=== PATIENT | male | born 1955 | race Caucasian/White ===

== ENCOUNTER 2018-08-20 10:10 | Emergency (ER) | payer MEDICARE, OTHER ==
[~2018-08-20] VITALS: Ht 172.7 cm; Wt 95.2 kg
[~2018-08-20 10:10] MED LIST: ASPI81TA50 PO; ATORVASTATIN CA80 MG PO; CARV6.2541 PO; CLOP75TA PO; CYAN1TAB19 PO; ISOS60TA2 PO; LISI2.5T PO; RANO10002 PO; SPIR25TA5 PO
[2018-08-20] MEDS ORDERED: IV NORMAL SALINE 1,000ML 1,000 ML IV SCH (10:23)
--- NOTE | 2018-08-20 10:29 | PHYS DOC ---
Past History Past Medical History: CAD, High Cholesterol, Heart Disease, Hypertension Past Surgical History: Pacemaker, Other Additional Past Surgical Histo: cardiac catheterization, PTCA Smoking: Quit Greater Than 1 Year Alcohol Use: Occasionally Drug Use: None Adult General Chief Complaint Chief Complaint: NEAR SYCOPE [facility] HPI Patient is a 63-year-old male who presents to the emergency department for evaluation. He states he was driving, when he began getting diaphoretic, lightheaded, and felt like he was almost going to pass out. He states his symptoms lasted a few seconds, although his diaphoresis lasted several minutes. He states he is currently feeling generally fatigued, but otherwise feels well. At no time did he have any chest pain, although he does admit to having some vague discomfort in the back of his neck, something he has had intermittently in the past. He does have an extensive cardiac history, with a history of prior coronary stents in the past, as well as a history of atrial fibrillation, and a pacemaker placement. He states his pacemaker was placed because of poor heart function from several heart attacks. He denies any shortness of breath at this t rafaela or pleuritic pain. He states that with his prior cardiac events and never had any chest pain, but rather had symptoms similar to how he felt today. There are no alleviating or exacerbating factors to his symptoms. Review of Systems Review of Systems Constitutional: Denies fever or chills [] Eyes: Denies change in visual acuity, redness, or eye pain [] HENT: Denies nasal congestion or sore throat [] Respiratory: Denies cough or shortness of breath [] Cardiovascular: No additional information not addressed in [facility] [] GI: Denies abdominal pain, nausea, vomiting, bloody stools or diarrhea [] : Denies dysuria or hematuria [] Musculoskeletal: Denies back pain or joint pain [] Integument: Denies rash or skin lesions [] Neurologic: Denies headache, focal weakness or sensory changes [] Endocrine: Denies polyuria or polydipsia [] All other systems were reviewed and found to be within normal limits, except as documented in this note. Allergies Allergies Allergies Coded Allergies Type Severity Reaction Last Updated Verified No Known Drug Allergies 01/31/16 No Physical Exam Physical Exam PHYSICAL EXAM: CONSTITUTIONAL: Well developed, well nourished HEAD: normocephalic, atraumatic EENT: PERRL, EOMI. Conjunctivae normal color, sclerae non-icteric; moist mucous membranes. NECK: Supple, non-tender; no meningismus. LUNGS: Lungs CTA, breathing even and unlabored. Normal air movement. HEART: Regular rate and rhythm, no murmur CHEST: No deformity; non-tender ABDOMEN: The abdomen is soft, and non-tender, no masses or bruits. EXTREM: Normal ROM; no deformity, no calf tenderness. Normal pulses palpable in all extremities. There is no pedal edema. SKIN: No rash; no diaphoresis NEURO: Alert; normal speech and cognition; CN's grossly intact; strength grossly intact without focal deficit. BACK: No CVA TTP. Current Patient Data Lab Results Laboratory Tests Test 08/20/18 10:41 White Blood Count 6.6 x10^3/uL Red Blood Count 5.05 x10^6/uL Hemoglobin 15.1 g/dL Hematocrit 44.4 % Mean Corpuscular Volume 88 fL Mean Corpuscular Hemoglobin 30 pg Mean Corpuscular Hemoglobin Concent 34 g/dL Red Cell Distribution Width 13.8 % Platelet Count 159 x10^3/uL Neutrophils (%) (Auto) 64 % Lymphocytes (%) (Auto) 23 % Monocytes (%) (Auto) 9 % Eosinophils (%) (Auto) 3 % Basophils (%) (Auto) 1 % Neutrophils # (Auto) 4.2 x10^3uL Lymphocytes # (Auto) 1.5 x10^3/uL Monocytes # (Auto) 0.6 x10^3/uL Eosinophils # (Auto) 0.2 x10^3/uL Basophils # (Auto) 0.1 x10^3/uL Sodium Level 141 mmol/L Potassium Level 3.8 mmol/L Chloride Level 105 mmol/L Carbon Dioxide Level 27 mmol/L Anion Gap 9 Blood Urea Nitrogen 17 mg/dL Creatinine 0.9 mg/dL Estimated GFR (Cockcroft-Gault) 85.2 BUN/Creatinine Ratio 19 Glucose Level 152 mg/dL Calcium Level 9.0 mg/dL Magnesium Level 1.7 mg/dL Total Bilirubin 0.8 mg/dL Aspartate Amino Transf (AST/SGOT) 14 U/L Alanine Aminotransferase (ALT/SGPT) 37 U/L Alkaline Phosphatase 116 U/L Creatine Kinase 69 U/L Creatine Kinase MB (Mass) 0.8 ng/mL Creatine Kinase MB Relative Index 1.2 % Troponin I Quantitative < 0.017 ng/mL NU-Rsc-N-Type Natriuretic Peptide 86 pg/mL Total Protein 7.1 g/dL Albumin 3.8 g/dL Albumin/Globulin Ratio 1.2 Current Medications Medications (Trade) Dose Ordered Sig/Frank Route PRN Reason Start Time Stop Time Status Last Admin Dose Admin Aspirin (Children'S Aspirin) 324 mg 1X ONCE PO 08/20/18 10:30 08/20/18 10:51 DC 08/20/18 10:44 Sodium Chloride 1,000 ml @ 1,000 mls/hr Q1H IV 08/20/18 10:23 08/20/18 11:23 DC 08/20/18 10:43 EKG EKG Probable atrial paced rhythm at a rate of 60 beats for minute, normal axis, normal intervals, left anterior fascicular block, there are no acute ischemic ST/T changes, nonspecific changes are present with significantly delayed and poor anterior R-wave progression. The EKG is not significantly changed compared to patient's prior EKG from 2016. Radiology/Procedures Radiology/Procedures []PROCEDURE: PORTABLE CHEST 1V AP portable chest radiograph 08/20/2018 Clinical History: Near syncope. An AP erect portable digital radiograph of the chest was obtained. Comparison study is dated 01/31/2016. A pacemaker is unchanged in position. The cardiac silhouette is mildly enlarged. The thoracic aorta is mildly tortuous. Calcified left hilar and mediastinal lymph nodes are again seen. No acute pulmonary infiltrate is noted. No pneumothorax or pleural effusion is seen. Degenerative changes are seen involving the thoracic spine. Impression: No acute abnormality is seen. Course & Med Decision Making Course & Med Decision Making Pertinent Labs and Imaging studies reviewed. (See chart for details) []Patient's pacemaker has been interrogated and it does not appear that he had any arrhythmic events today. 11:30 AM: The patient's condition remained stable and he is asymptomatic at this time.I had an extensive discussion with the patient about the limitations of ER cardiac evaluation in definitively ruling out acute coronary syndrome. We discussed limitation of the ER evaluation and a singe ED troponin in r/o AMI, and the risks involved in missed diagnosis of acute coronary syndrome including or permanent debility. I recommended overnight observation for further formal cardiac evaluation to rule out acute coronary syndrome. After expressing understanding of the limitations of ER cardiac evaluation, as well as the risks of missed diagnosis, the patient declined further cardiac evaluation at this time. The patient was mentally competent, and given opportunity to ask questions about the diagnosis and recommended plan of care. I stressed the importance of outpatient follow-up, and returning to the emergency department for new or worsening symptoms, or if the patient is agreeable to undergo further cardiac evaluation. 11:50 AM: Patient changes mind and would like to be observed in the hospital overnight per recommendations, but would rather be transferred to where his cardiac care is based. I will call the transfer center to facilitate transfer. 12:10 PM: The patient's condition remained stable he has been accepted by Dr. Joiner at . Will xfer via EMS. Dragon Disclaimer Dragon Disclaimer This electronic medical record was generated, in whole or in part, using a voice recognition dictation system. Departure Departure: Impression: Primary Impression: Near syncope Additional Impression: CAD (coronary artery disease) Disposition: 02 XFER SHT-TRM HOSP Condition: STABLE Referrals: TASHA KANG (PCP) Patient Instructions: Chest Pain (Nonspecific), Syncope Problem Qualifiers PHILIP BORRERO MD Aug 20, 2018 10:29
[2018-08-20] MEDS ORDERED: ASPIRIN 81 MG TAB.CHEW PO ONE (10:30)
[2018-08-20 10:55] LABS: BASO # 0.1 x10^3/uL (0.0-0.2); BASO % 1 % (0-3); EOS # 0.2 x10^3/uL (0.0-0.7); EOS % 3 % (0-3); HEMATOCRIT 44.4 % (39.0-53.0); HEMOGLOBIN 15.1 g/dL (13.0-17.5); LYMPH # 1.5 x10^3/uL (1.0-4.8); LYMPH % 23 % (24-48); MEAN CORPUSCULAR HEMOGLOBIN 30 pg (25-35); MEAN CORPUSCULAR HGB CONC 34 g/dL (31-37); MEAN CORPUSCULAR VOLUME 88 fL (79-100); MONO # 0.6 x10^3/uL (0.0-1.1); MONO % 9 % (0-9); NEUT # 4.2 x10^3uL (1.8-7.7); NEUT % 64 % (31-73); PLATELET COUNT 159 x10^3/uL (140-400); RED BLOOD COUNT 5.05 x10^6/uL (4.30-5.70); RED CELL DISTRIBUTION WIDTH 13.8 % (11.5-14.5); WHITE BLOOD COUNT 6.6 x10^3/uL (4.0-11.0)
--- NOTE | 2018-08-20 11:09 | RAD ---
AP portable chest radiograph 08/20/2018 Clinical History: Near syncope. An AP erect portable digital radiograph of the chest was obtained. Comparison study is dated 01/31/2016. A pacemaker is unchanged in position. The cardiac silhouette is mildly enlarged. The thoracic aorta is mildly tortuous. Calcified left hilar and mediastinal lymph nodes are again seen. No acute pulmonary infiltrate is noted. No pneumothorax or pleural effusion is seen. Degenerative changes are seen involving the thoracic spine. Impression: No acute abnormality is seen. Electronically signed by: Ken Roa MD (08/20/2018 11:06 AM) [id number]
[2018-08-20 11:15] VITALS: BP 106/64
[2018-08-20 11:18] LABS: ALBUMIN 3.8 g/dL (3.4-5.0); ALBUMIN/GLOBULIN RATIO 1.2 (1.0-1.7); CREATININE 0.9 mg/dL (0.7-1.3); GFR 85.2; MAGNESIUM 1.7 mg/dL (1.8-2.4); POTASSIUM 3.8 mmol/L (3.5-5.1); TOTAL BILIRUBIN 0.8 mg/dL (0.2-1.0); TOTAL PROTEIN 7.1 g/dL (6.4-8.2)
== END 2018-08-20 14:20 | disposition short-term general hospital (02) ==
LOC: ER 10:10
DX: R55 Syncope and collapse (principal); I25.10 Atherosclerotic heart disease of native coronary artery without angina pectoris; I11.9 Hypertensive heart disease without heart failure; E78.00 Pure hypercholesterolemia, unspecified; Z95.0 Presence of cardiac pacemaker; Z98.61 Coronary angioplasty status; Z87.891 Personal history of nicotine dependence
CPT/HCPCS: 36415; 71045; 80053; 82553; 83735; 83880; 84484; 85025; 96360; 96361; 99285-25; J7030

== ENCOUNTER → 2020-11-21 | Outpatient (CLI) | payer MEDICARE, OTHER ==
[~2020-11-21] MED LIST changes: -ISOS60TA2 PO; +ISOS60TA55 PO; -LISI2.5T PO; +LISI2.5T12 PO
[2020-11-21 09:29] LABS: CALCIUM 9.7 mg/dL (8.5-10.1); CREATININE 1.2 mg/dL (0.7-1.3); GFR 60.8; POTASSIUM 5.8 mmol/L (3.5-5.1)
== END ==
LOC: LAB 08:33
PROVIDERS: ATTEND Nurse Practitioner Family
DX: I48.0 Paroxysmal atrial fibrillation (principal)
CPT/HCPCS: 36415; 80048; 85610

== ENCOUNTER 2020-11-24 23:50 | Emergency (ER) | payer MEDICARE, OTHER ==
[~2020-11-24] VITALS: Ht 172.7 cm; Wt 83.1 kg
[~2020-11-24 23:50] MED LIST changes: -APIX5TAB3 PO; -ASPI-630 PO; -LOSA25TA PO; -MAGN500C10 PO; -METF-658 PO; -NITR0.4T22 SL; -POLY17PO5 PO; -SERT25TA PO; -VIT1TAB.7 PO
--- NOTE | 2020-11-24 23:56 | PHYS DOC ---
Past History Past Medical History: A-Fib, Angina, CHF, Hypertension, Other Past Surgical History: Pacemaker Additional Past Surgical Histo: cardiac catheterization, PTCA Smoking: Quit Greater Than 1 Year Alcohol Use: None Drug Use: None General Adult HPI: HPI: ".. I ve been having a little headache tonight.. lissy frontal.. my scalp is tender... Patient is a 65 year old male who presents with headache the last two hours. Pt states he also had some Rt arm numbnesss for a few seconds. 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 Pt. recently chaned from Eliquis to Coumadin for tx of his Afib. Pt. follows at Dr. Danielle at [place] and Dr. Townsend at cardiology. Pt. in a previous history of stroke. Patient does have a past history of A. fib, hypertension, diabetes, depression, elevated lipids, past tobacco use stop smoking for more than a year,. Patient has significant cardiac history with MIs and with coronary artery PTCAs and stents. Patient has had a pacemaker placement. Patient has had episodes of near syncope in the past. Patient has completed COVID vaccination x2 with Moderna. Patient currently being evaluated for heart transplant at . Review of Systems: Review of Systems: Constitutional: Denies fever or chills Eyes: Denies change in visual acuity HENT: Denies nasal congestion or sore throat Respiratory: Denies cough or shortness of breath Cardiovascular: Denies chest pain or edema GI: Denies abdominal pain, nausea, vomiting, bloody stools or diarrhea : Denies dysuria Musculoskeletal: Denies back pain or joint pain Integument: Denies rash Neurologic: Complains of headache,. Denies current focal weakness or sensory changes. Did have a short few second episode of right arm numbness.. Endocrine: Denies polyuria or polydipsia Lymphatic: Denies swollen glands Psychiatric: History of depression or anxiety Family History: Family History: Noncontributory to presentation Current Medications: Current Meds: See nursing for home meds Allergies: Allergies: Allergies Coded Allergies Type Severity Reaction Last Updated Verified Wucsifr-Sqz-Uoe Reductase Inhibitor Allergy Unknown 08/20/18 Yes Physical Exam: PE: Constitutional: no acute distress, non-toxic appearance. [] HENT: Normocephalic, atraumatic, bilateral external ears normal, oropharynx moist, no oral exudates, nose normal. [] Eyes: PERRLA, EOMI, conjunctiva normal, no discharge. Glasses Neck: Normal range of motion, no tenderness, supple, no stridor. [] Cardiovascular: Bradycardia heart rate regular rhythm, no murmur [] Lungs & Thorax: Bilateral breath sounds equal apex on auscultation. Few scattered wheezes. [] pacemaker scar. Few basilar crackles Abdomen: Bowel sounds normal, soft, no tenderness, no masses, no pulsatile masses. Obese. Skin: Warm, dry, no erythema, no rash. [] Back: No tenderness, no CVA tenderness. [] Extremities: No tenderness, no cyanosis, no clubbing, ROM intact, no edema. [] No cording appreciated Neurologic: Alert and oriented X 3, moves extremities on request, does have distal sensory no focal deficits noted. [] DTRs +2 patella brachial. Entrepreneurship Program Director equal. No drift. Bpefy-odfx-nnuwskio. Ambulatory without problem Psychologic: Affect anxious, judgement normal, mood normal. [] EKG: EKG: My interpretation EKG shows a sinus bradycardia at 60 bpm. Leftward axis. Low voltage. No findings of acute STEMI of contralateral changes. [] Time of EKG is 2357 hrs. Radiology/Procedures: Radiology/Procedures: [place] [address] IMAGING REPORT Signed PATIENT: HERBIE GILES AACCOUNT: [id number] : 1955 LOCATION: ER AGE: 65 SEX: M EXAM STATUS: REG ER ORD. PHYSICIAN: SOLIS KONG MD REASON: dyspnea PROCEDURE: PORTABLE CHEST 1V Chest PA view: Reason for examination: Headache and dyspnea. Pacemaker is present over the left hemithorax. The heart size is normal. Med iastinum is unremarkable. Lung aceves are clear. No acute bony abnormalities are seen. Impression: No acute cardiopulmonary disease. CT head without contrast: Helical images were obtained through the brain with no contrast administered. Exposure: One or more of the following individualized dose reduction techniques were utilized for this examination: 1. Automated exposure control 2. Adjustment of the mA and/or kV according to patient size 3. Use of iterative reconstruction technique. Ventricular systems are symmetric and not abnormally dilated. No midline shift is seen. There is no evidence of intracranial hemorrhage, infarct, mass or edema. No abnormalities are seen at the paranasal sinuses. Mastoid air cells are clear. No acute skull abnormality is seen. IMPRESSION: No acute intracranial abnormality evident. Electronically signed by: Alesha Enriquez MD (11/25/2020 1:00 AM) [facility] DICTATED AND SIGNED BY: ALESHA ENRIQUEZ MD DATE: 11/25/2057 CC: SOLIS KONG MD; JESSICA DANIELLE ~MTH0 0 [][place] [address] IMAGING REPORT Signed PATIENT: HERBIE GILES AACCOUNT: [id number] : 1955 LOCATION: ER AGE: 65 SEX: M EXAM STATUS: REG ER ORD. PHYSICIAN: SOLIS KONG MD REASON: headache- on coumadin PROCEDURE: CT HEAD WO CONTRAST Chest PA view: Reason for examination: Headache and dyspnea. Pacemaker is present over the left hemithorax. The heart size is normal. Mediastinum is unremarkable. Lung aceves are clear. No acute bony abnormalities are seen. Impression: No acute cardiopulmonary disease. CT head without contrast: Helical images were obtained through the brain with no contrast administered. Exposure: One or more of the following individualized dose reduction techniques were utilized for this examination: 1. Automated exposure control 2. Adjustment of the mA and/or kV according to patient size 3. Use of iterative reconstruction technique. Ventricular systems are symmetric and not abnormally dilated. No midline shift is seen. There is no evidence of intracranial hemorrhage, infarct, mass or edema. No abnormalities are seen at the paranasal sinuses. Mastoid air cells are clear. No acute skull abnormality is seen. IMPRESSION: No acute intracranial abnormality evident. Electronically signed by: Alesha Enriquez MD (11/25/2020 1:00 AM) [facility] DICTATED AND SIGNED BY: ALESHA ENRIQUEZ MD DATE: 11/25/2057 CC: SOLIS KONG MD; JESSICA DANIELLE ~MTH0 0 Heart Score: C/O Chest Pain: N/A HEART Score for Chest Pain: HEART Score for Chest Pain Response (Comments) Value History Moderately Suspicious 1 ECG Nonspecific Repolarizatio 1 Age >45 - < 65 1 Risk Factors 1 or 2 Risk Factors 1 Troponin < Normal Limit 0 Total 4 Risk Factors: Risk Factors: DM, Current or recent (<one month) smoker, HTN, HLP, family history of CAD, obesity. Risk Scores: Score 0 - 3: 2.5% MACE over next 6 weeks - Discharge Home Score 4 - 6: 20.3% MACE over next 6 weeks - Admit for Clinical Observation Score 7 - 10: 72.7% MACE over next 6 weeks - Early Invasive Strategies Course & Med Decision Making: Course & Med Decision Making Pertinent Labs and Imaging studies reviewed. (See chart for details) Patient declines admission at this time. Patient follow-up with primary care. Patient follow-up at cardiology. Patient will follow up with transplant c enter. Impression: 1. Headache 2. Bradycardia 60 3. INR 3.3 4. Elevated D-dimer as 2.34 [] Dragon Disclaimer: Dragon Disclaimer: This electronic medical record was generated, in whole or in part, using a voice recognition dictation system. Departure Departure: Referrals: JESSICA DANIELLE (PCP) Dragon Disclaimer This chart was dictated in whole or in part using Voice Recognition software in a busy, high-work load, and often noisy Emergency Department environment. It may contain unintended and wholly unrecognized errors or omissions. Dragon Disclaimer This chart was dictated in whole or in part using Voice Recognition software in a busy, high-work load, and often noisy Emergency Department environment. It may contain unintended and wholly unrecognized errors or omissions. SOLIS KONG MD Nov 24, 2020 23:56
--- NOTE | 2020-11-25 00:36 | EKG ---
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
[2020-11-25 00:49] LABS: BASO # 0.1 x10^3/uL (0.0-0.2); BASO % 1 % (0-3); EOS # 0.2 x10^3/uL (0.0-0.7); EOS % 2 % (0-3); HEMOGLOBIN 14.6 g/dL (13.0-17.5); LYMPH % 22 % (24-48); MEAN CORPUSCULAR HEMOGLOBIN 31 pg (25-35); MEAN CORPUSCULAR HGB CONC 34 g/dL (31-37); MEAN CORPUSCULAR VOLUME 91 fL (79-100); MONO % 11 % (0-9); NEUT # 5.8 x10^3uL (1.8-7.7); NEUT % 64 % (31-73); PLATELET COUNT 179 x10^3/uL (140-400); RED BLOOD COUNT 4.73 x10^6/uL (4.30-5.70); RED CELL DISTRIBUTION WIDTH 13.4 % (11.5-14.5); WHITE BLOOD COUNT 9.2 x10^3/uL (4.0-11.0)
[2020-11-25] MEDS ORDERED: IV RINGERS SOLUTION,LACTATED 1,000 ML IV SCH (01:00)
[2020-11-25 01:01] LABS: CALCIUM 9.1 mg/dL (8.5-10.1); POTASSIUM 4.4 mmol/L (3.5-5.1)
--- NOTE | 2020-11-25 01:02 | RAD ---
Chest PA view: Reason for examination: Headache and dyspnea. Pacemaker is present over the left hemithorax. The heart size is normal. Mediastinum is unremarkable. Lung aceves are clear. No acute bony abnormalities are seen. Impression: No acute cardiopulmonary disease. CT head without contrast: Helical images were obtained through the brain with no contrast administered. Exposure: One or more of the following individualized dose reduction techniques were utilized for thi s examination: 1. Automated exposure control 2. Adjustment of the mA and/or kV according to patient size 3. Use of iterative reconstruction technique. Ventricular systems are symmetric and not abnormally dilated. No midline shift is seen. There is no e vidence of intracranial hemorrhage, infarct, mass or edema. No abnormalities are seen at the paranasa l sinuses. Mastoid air cells are clear. No acute skull abnormality is seen. IMPRESSION: No acute intracranial abnormality evident. Electronically signed by: Nuzhat Brennan MD (11/25/2020 1:00 AM) [facility]OM
[2020-11-25 01:07] LABS: BARBITURATES NEG (NEG); BENZODIAZEPINES NEG (NEG); CANNABINOIDS NEG (NEG); COCAINE NEG (NEG); METHADONE NEG (NEG); OPIATES NEG (NEG); PHENCYCLIDINE NEG (NEG)
[2020-11-25 01:09] LABS: BACTERIA,URINE 0 /HPF (0-FEW); BILIRUBIN,URINE NEG (NEG); CLARITY,URINE CLEAR; COLOR,URINE YELLOW; GLUCOSE,URINE NEG (NEG); NITRITE,URINE NEG (NEG); RBC,URINE 0 /HPF (0-2); SQUAMOUS EPITHELIAL CELL,UR OCC /LPF; UROBILINOGEN,URINE 0.2 mg/dL (0.2 mg/dL); WBC,URINE OCC /HPF (0-4)
[2020-11-25 01:12] LABS: AMPHETAMINE/METHAMPHETAMINE NEG (NEG)
[2020-11-25 01:15] LABS: MAGNESIUM 2.4 mg/dL (1.8-2.4)
[2020-11-25 02:10] VITALS: BP 117/72
[2020-11-25 11:15] LABS: THYROID STIM HORMONE (TSH) 2.544 uIU/mL (0.358-3.740)
== END 2020-11-25 02:12 | disposition home or self-care (01) ==
LOC: ER 23:50
DX: R51.9 Headache, unspecified (principal); R00.1 Bradycardia, unspecified; R79.1 Abnormal coagulation profile; I48.91 Unspecified atrial fibrillation; I11.0 Hypertensive heart disease with heart failure; I50.9 Heart failure, unspecified; Z95.0 Presence of cardiac pacemaker; Z87.891 Personal history of nicotine dependence; Z88.8 Allergy status to other drugs, medicaments and biological substances
CPT/HCPCS: 36415; 70450; 71045; 80048; 80061; 80307; 81001; 82550; 83690; 83735; 83880; 84443; 84484; 85025; 85379; 85610; 85730; 93005; 99284; J7120; 96360; 96361

== ENCOUNTER → 2020-11-24 | Outpatient (CLI) | payer MEDICARE, OTHER ==
[~2020-11-24] MED LIST changes: +APIX5TAB3 PO; +ASPI-630 PO; +LOSA25TA PO; +MAGN500C10 PO; +METF-658 PO; +NITR0.4T22 SL; +POLY17PO5 PO; +SERT25TA PO; +VIT1TAB.7 PO
== END ==
LOC: LAB 10:24
PROVIDERS: ATTEND Internal Medicine
DX: I50.42 Chronic combined systolic (congestive) and diastolic (congestive) heart failure (principal)
CPT/HCPCS: 36415; 85610

== ENCOUNTER 2020-12-04 20:33 | Emergency (ER) | payer MEDICARE, OTHER ==
[~2020-12-04] VITALS: Ht 172.7 cm; Wt 83.6 kg
--- NOTE | 2020-12-04 21:19 | PHYS DOC ---
Past History Past Medical History: A-Fib, Angina, CHF, Hypertension, Other Additional Past Medical Histor: HEART FAILURE Past Surgical History: Pacemaker Additional Past Surgical Histo: cardiac catheterization, PTCA, ICD Smoking: Quit Greater Than 1 Year Alcohol Use: None Drug Use: None General Adult EDM: Chief Complaint: DIZZY/LIGHT HEADED HPI: HPI: Patient is a 65-year-old male presenting for near syncopal episode he was getting up to the restroom he also has a sudden onset headache dysuria better but is getting worse again. Patient states his pacemaker has been firing frequently. And feels a firing now. Has a history of 4 cardiac stents and was recently changed from Coumadin to Eliquis. Patient is being worked up at for heart transplant due to heart failure. 2 weeks ago had a right-sided heart cath and had estimated EF of 25%. Patient has any other complaints. Is had both of his COVID-19 [place] vaccines. Has been eating and drinking normally, no change in urination. Denies any pain other than his head. Which he describes as an aching in the frontal part of his head. Denies any falls. Review of Systems: Review of Systems: All other systems within normal limits except for as noted in the HPI Allergies: Allergies: Allergies Coded Allergies Type Severity Reaction Last Updated Verified Rmcuzro-Kyz-Lfe Reductase Inhibitor Allergy Unknown 08/20/18 Yes Physical Exam: PE: Constitutional: Well developed, well nourished, no acute distress, non-toxic appearance. [] HENT: Normocephalic, atraumatic, bilateral external ears normal, nose normal. [] Eyes: PERRLA, conjunctiva normal, no discharge. [] Neck: No rigidity, supple, no stridor. [] Cardiovascular: Regular rate and rhythm, brisk cap refill [] Lungs & Thorax: Non labored symmetric respirations, no tachypnea or respiratory distress [] Abdomen: Soft, nondistended. Skin: Warm, dry, no erythema, no rash. [] Back: Unremarkable Extremities: No deformities, range of motion grossly intact, no lower extremity edema [] Neurologic: Alert and oriented X 3, no focal deficits noted. [] Psychologic: Affect normal, judgement normal, mood normal. [] EKG: EKG: Sinus rhythm, flattened T waves. Normal axis, no ST elevation or depression [] Radiology/Procedures: Radiology/Procedures: [][address] [address] IMAGING REPORT Signed PATIENT: HERBIE GILES AACCOUNT: [id number] : 1955 LOCATION: ER AGE: 65 SEX: M EXAM STATUS: REG ER ORD. PHYSICIAN: LISA HERNÁNDEZ MD REASON: headache, on eliquis PROCEDURE: CT HEAD WO CONTRAST CT Head W/O Contrast: History: Reason: headache, on eliquis / Spl. Instructions: / History: Comparison: November 25, 2020 Axial images were obtained without contrast. There is mild diffuse atrophy. There is no mass effect, extraaxial fluid collections or hydrocephalus. There is no focal loss of miguel-white matter distinction to suggest acute ischemia, i.e. stroke. Impression: No acute findings. RS Compliance Statement: One or more of the following individualized dose reduction techniques were utilized for this examination: 1. Automated exposure control 2. Adjustment of the mA and/or kV according to patient size 3. Use of iterative reconstruction technique Electronically signed by: Severino Lomeli III, MD (12/04/2020 9:46 PM) [facility] DICTATED AND SIGNED BY: SEVERINO LOMELI III, MD DATE: 12/04/202142 CC: LISA HERNÁNDEZ MD; JESSICA DANIELLE [facility] ~MTH0 [address] [address] IMAGING REPORT Signed PATIENT: HERBIE GILES AACCOUNT: [id number] : 1955 LOCATION: ER AGE: 65 SEX: M EXAM STATUS: REG ER ORD. PHYSICIAN: LISA HERNÁNDEZ MD REASON: chf, near syncope PROCEDURE: CHEST AP ONLY XR CHEST 1V Clinical History: Reason: chf, near syncope / Spl. Instructions: / History: Technique: AP view of the chest was obtained at 12/04/2020 9:16 PM. Comparison: November 25, 2020. Findings: The cardiomediastinal silhouette is normal. The pulmonary vasculature is normal. The lungs and pleural margins are clear. Left-sided defibrillator is again seen. There is a few calcified granuloma on the left. Impression: Stable appearance of the chest. Electronically signed by: Severino Lomeli III, MD (12/04/2020 10:12 PM) [facility] DICTATED AND SIGNED BY: SEVERINO LOMELI III, MD DATE: 12/04/200 CC: LISA HERNÁNDEZ MD; JESSICA DANIELLE ~MTH0 0 Heart Score: C/O Chest Pain: No HEART Score for Chest Pain: HEART Score for Chest Pain Response (Comments) Value History Slighlty/Non-Suspicious 0 ECG Nonspecific Repolarizatio 1 Age > 65 2 Risk Factors >3 Risk Factors or Hx CAD 2 Troponin < Normal Limit 0 Total 5 Risk Factors: Risk Factors: DM, Current or recent (<one month) smoker, HTN, HLP, family history of CAD, obesity. Risk Scores: Score 0 - 3: 2.5% MACE over next 6 weeks - Discharge Home Score 4 - 6: 20.3% MACE over next 6 weeks - Admit for Clinical Observation Score 7 - 10: 72.7% MACE over next 6 weeks - Early Invasive Strategies Course & Med Decision Making: Course & Med Decision Making Patient borderline orthostatic on initial evaluation in emergency department. Labs show a high BUN to creatinine ratio. Due to history of CHF will gently hydrate. Work-up unremarkable other than the high BUN to creatinine ratio. Patient has negative troponin x2 and symptoms improved in emergency department with fluids. Patient states that he has a fluid restriction but is actually drinking less over the past day. Discussed getting up more slowly while taking his metoprolol. Patient agrees to call his electrolysis needle operator in the morning to discuss his blood pressure medication increases and recent symptoms Dragon Disclaimer: Dragon Disclaimer: This electronic medical record was generated, in whole or in part, using a voice recognition dictation system. Departure Departure: Impression: Primary Impression: Orthostatic lightheadedness Additional Impression: Headache Disposition: HOME / SELF CARE / HOMELESS Condition: STABLE Referrals: JESSICA DANIELLE (PCP) Patient Instructions: Orthostatic Hypotension LISA HERNÁNDEZ MD Dec 04, 2020 21:19
[2020-12-04 21:32] LABS: BASO # 0.1 x10^3/uL (0.0-0.2); BASO % 1 % (0-3); EOS # 0.2 x10^3/uL (0.0-0.7); EOS % 3 % (0-3); HEMATOCRIT 43.1 % (39.0-53.0); HEMOGLOBIN 14.6 g/dL (13.0-17.5); LYMPH # 1.9 x10^3/uL (1.0-4.8); LYMPH % 25 % (24-48); MEAN CORPUSCULAR HEMOGLOBIN 31 pg (25-35); MEAN CORPUSCULAR HGB CONC 34 g/dL (31-37); MEAN CORPUSCULAR VOLUME 91 fL (79-100); MONO % 13 % (0-9); NEUT # 4.6 x10^3uL (1.8-7.7); NEUT % 59 % (31-73); PLATELET COUNT 189 x10^3/uL (140-400); RED BLOOD COUNT 4.75 x10^6/uL (4.30-5.70); RED CELL DISTRIBUTION WIDTH 13.7 % (11.5-14.5); WHITE BLOOD COUNT 7.9 x10^3/uL (4.0-11.0)
[2020-12-04 21:39] LABS: CALCIUM 9.3 mg/dL (8.5-10.1); CREATININE 0.8 mg/dL (0.7-1.3); POTASSIUM 4.2 mmol/L (3.5-5.1)
--- NOTE | 2020-12-04 21:48 | RAD ---
CT Head W/O Contrast: History: Reason: headache, on eliquis / Spl. Instructions: / History: Comparison: November 25, 2020 Axial images were obtained without contrast. There is mild diffuse atrophy. There is no mass effect, extraaxial fluid collections or hydrocephalu s. There is no focal loss of miguel-white matter distinction to suggest acute ischemia, i.e. stroke. Impression: No acute findings. RS Compliance Statement: One or more of the following individualized dose reduction techniques were utilized for this examinat ion: 1. Automated exposure control 2. Adjustment of the mA and/or kV according to patient size 3. Use of iterative reconstruction technique Electronically signed by: Vlad Mueller III, MD (12/04/2020 9:46 PM) [facility]
[2020-12-04 21:49] LABS: ALBUMIN 3.6 g/dL (3.4-5.0); ALBUMIN/GLOBULIN RATIO 1.3 (1.0-1.7); MAGNESIUM 2.4 mg/dL (1.8-2.4); PHOSPHORUS 3.6 mg/dL (2.6-4.7); TOTAL BILIRUBIN 0.3 mg/dL (0.2-1.0); TOTAL PROTEIN 6.3 g/dL (6.4-8.2)
--- NOTE | 2020-12-04 22:14 | RAD ---
XR CHEST 1V Clinical History: Reason: chf, near syncope / Spl. Instructions: / History: Technique: AP view of the chest was obtained at 12/04/2020 9:16 PM. Comparison: November 25, 2020. Findings: The cardiomediastinal silhouette is normal. The pulmonary vasculature is normal. The lungs and pleura l margins are clear. Left-sided defibrillator is again seen. There is a few calcified granuloma on th e left. Impression: Stable appearance of the chest. Electronically signed by: Vlad Mueller III, MD (12/04/2020 10:12 PM) [facility]
[2020-12-04 22:25] LABS: BACTERIA,URINE 0 /HPF (0-FEW); BILIRUBIN,URINE NEG (NEG); CLARITY,URINE CLEAR; COLOR,URINE YELLOW; GLUCOSE,URINE NEG (NEG); NITRITE,URINE NEG (NEG); RBC,URINE 0 /HPF (0-2); SQUAMOUS EPITHELIAL CELL,UR OCC /LPF; UROBILINOGEN,URINE 0.2 mg/dL (0.2 mg/dL); WBC,URINE OCC /HPF (0-4)
[2020-12-04] MEDS ORDERED: IV NORMAL SALINE 500ML 500 ML IV ONE (23:00)
[2020-12-04] MEDS ORDERED: ACETAMINOPHEN 500 MG TABLET PO ONE (23:15)
[2020-12-05 00:36] VITALS: BP 116/72
--- NOTE | 2020-12-05 14:01 | EKG ---
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
== END 2020-12-05 00:38 | disposition home or self-care (01) ==
LOC: ER 20:33
DX: R42 Dizziness and giddiness (principal); R51.9 Headache, unspecified; R30.0 Dysuria; I48.91 Unspecified atrial fibrillation; I11.0 Hypertensive heart disease with heart failure; I50.9 Heart failure, unspecified; Z95.0 Presence of cardiac pacemaker; Z87.891 Personal history of nicotine dependence; Z88.8 Allergy status to other drugs, medicaments and biological substances
CPT/HCPCS: 36415; 70450; 71045; 80053; 81001; 83735; 83880; 84100; 84484; 85025; 85610; 93005; 96360; 99284; J7040

== ENCOUNTER → 2021-02-01 | Outpatient (CLI) | payer MEDICARE, OTHER ==
[2020-12-16 06:40] VITALS: BP 116/75
[~2021-02-01] MED LIST changes: +APIX5TAB3 PO; +ASPI-630 PO; +LOSA25TA PO; +MAGN500C10 PO; +METF-658 PO; +NITR0.4T22 SL; +POLY17PO5 PO; +SERT25TA PO; +VIT1TAB.7 PO
[2021-02-01 09:53] LABS: CALCIUM 9.4 mg/dL (8.5-10.1); CREATININE 1.1 mg/dL (0.7-1.3); GFR 67.2; POTASSIUM 5.6 mmol/L (3.5-5.1)
== END ==
LOC: LAB 08:08
PROVIDERS: ATTEND Internal Medicine
DX: I50.42 Chronic combined systolic (congestive) and diastolic (congestive) heart failure (principal); I25.10 Atherosclerotic heart disease of native coronary artery without angina pectoris; I25.5 Ischemic cardiomyopathy
CPT/HCPCS: 36415; 80048

== ENCOUNTER 2021-03-05 02:58 | Emergency (ER) | payer MEDICARE, OTHER ==
[~2021-03-05] VITALS: Ht 172.7 cm; Wt 94.3 kg
--- NOTE | 2021-03-05 03:04 | PHYS DOC ---
Past History Past Medical History: A-Fib, Angina, CHF, Hypertension, CT, Other Additional Past Medical Histor: HEART FAILURE (SOLIS KONG MD) Past Surgical History: Other Additional Past Surgical Histo: lab aide last friday (SOLIS KONG MD) Smoking: Quit Greater Than 1 Year Alcohol Use: Rarely Drug Use: None (SOLIS KONG MD) General Adult HPI: HPI: ".. I think I worked to hard today.. making Fudge.. for gifts.. " " Been lissy nauseated .. and dizzy all day.. Blood pressure up...... some chest discomfort.. 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 Pt. localized his chest discomfort to central area.. Currently discomfort is rated 2/10. Discomfort does not seem to radiate. Discomfort was reportedly worse earlier in the day. Patient has had previous CT. Does have a history of elevated cholesterol. Normally follows at - Dr. Merida- Cardiology.. Was at one time on transplant work up. Pt. primary is Dr. Danielle at . Patient does take Eliquis 5 mg twice a day for history of A. fib and CHF. Patient denies any recent changes in meds. Has had previous ICD and pacer placement as well as [address] and angina. Patient has had cardiac ablation treatment for A. fib in October of this past year. Patient was a former smoker but quit 3 years ago. Patient does have a history anxiety, depression, enlarged prostate, elevated cholesterol, borderline diabetes, CHF, A. fib, psoriasis/eczema , arthritis and hypertension. Patient patient has completed [employer] x2 in May and June, flu vaccination, Pneumovax, and shingles vaccinations. Patient does not use alcohol. No recent travel. No specific ill contacts. No history of trauma. (SOLIS KONG MD) Review of Systems: Review of Systems: Constitutional: Denies fever or chills Eyes: Denies change in visual acuity HENT: Denies nasal congestion or sore throat Respiratory: Denies cough or shortness of breath Cardiovascular: Complains of chest discomfort GI: Denies abdominal pain, nausea, vomiting, bloody stools or diarrhea : Denies dysuria Musculoskeletal: Denies back pain or joint pain Integument: Denies rash Neurologic: Denies headache, focal weakness or sensory changes Endocrine: Denies polyuria or polydipsia Lymphatic: Denies swollen glands Psychiatric: Denies depression or anxiety (SOLIS KONG MD) Family History: Family History: Noncontributory to presentation (SOLIS KONG MD) Current Medications: Current Meds: See nursing for home meds (SOLIS KONG MD) Allergies: Allergies: Allergies Coded Allergies Type Severity Reaction Last Updated Verified Fqhyikm-MKQ-RxZ Reductase Inhibitor Allergy Unknown 12/16/20 Yes (SOLIS KNOG MD) Physical Exam: PE: Constitutional: , no acute distress, non-toxic appearance. [] HENT: Normocephalic, atraumatic, bilateral external ears normal, oropharynx moist, no oral exudates, nose normal. Eczema /psoriasis facial. Eyes: PERRLA, EOMI, conjunctiva normal, no discharge. [] Neck: Normal range of motion, no tenderness, supple, no stridor. [] Cardiovascular:Heart rate regular rhythm, no murmur . Monitor shows a sinus rhythm at 60 bpm. Lungs & Thorax: Bilateral breath sounds equal apex on auscultation [] Abdomen: Bowel sounds normal, soft, no tenderness, no masses, no pulsatile masses. [] Skin: Warm, dry, no erythema, eczema/Psoriasis Back: No tenderness, no CVA tenderness. [] Extremities: No tenderness, no cyanosis, no clubbing, ROM intact, no edema. Arthritic changes Neurologic: Alert and oriented X 3, moves all extremities on request, does have a distal sensory., no focal deficits noted. [] Psychologic: Affect anxious, judgement normal, mood normal. [] (SOLIS KONG MD) EKG: EKG: My interpretation EKG shows a sinus rhythm at 60 bpm. Does have leftward axis and low voltage throughout. Some nonspecific changes anterior leads but no findings acute STEMI of contralateral changes. [] (SOLIS KONG MD) Radiology/Procedures: Radiology/Procedures: [][address] [address] IMAGING REPORT Signed PATIENT: HERBIE GILES AACCOUNT: [id number] : 1955 LOCATION: ER AGE: 65 SEX: M EXAM STATUS: REG ER ORD. PHYSICIAN: SOLIS KONG MD REASON: cp PROCEDURE: PORTABLE CHEST 1V EXAM: CHEST ONE VIEW. HISTORY: Chest pain. COMPARISON: 12/16/2020. FINDINGS: A frontal view of the chest is obtained. A left-sided pacer/defibr illator has its leads in the right atrium and right ventricle. There is focal architectural distortion just lateral to the right superior hilum. Calcified mediastinal lymph nodes are likely secondary to old granulomatous disease. There is no pneumothorax or pleural effusion. The heart is not enlarged. IMPRESSION: 1. Architectural distortion lateral to the right superior hilum. CT of the chest could exclude a nodule if this remains unclear. Electronically signed by: Angela Meadows MD (03/05/2021 5:17 AM) [id number] DICTATED AND SIGNED BY: FRED MEADOWS MD DATE: 03/05/21514 CC: SOLIS KONG MD; JESSICA DANIELLE ~MTH0 0 (SOLIS KONG MD) Impressions: EXAM: CHEST ONE VIEW. HISTORY: Chest pain. COMPARISON: 12/16/2020. FINDINGS: A frontal view of the chest is obtained. A left-sided pacer/defibrillator has its leads in the right atrium and right ventricle. There is focal architectural distortion just lateral to the right superior hilum. Calcified mediastinal lymph nodes are likely secondary to old granulomatous disease. There is no pneumothorax or pleural effusion. The heart is not enlarged. IMPRESSION: 1. Architectural distortion lateral to the right superior hilum. CT of the chest could exclude a nodule if this remains unclear. Electronically signed by: Angela Meadows MD (03/05/2021 5:17 AM) [id number] DICTATED AND SIGNED BY: FRED MEADOWS MD DATE: 03/05/21514 CC: SOLIS KONG MD; JESSICA DANIELLE ~MTH0 0 CTA CHEST INDICATION: dyspnea, cp, rt. hilar changes Comparison: Chest radiograph 03/05/2021. TECHNIQUE: Following the uneventful administration of intravenous contrast, 100 cc Omnipaque 350, axial CT sections were obtained through the lungs and upper abdomen. Multiplanar reconstructions and MIP images were obtained. PQRS compliance statement: One or more of the following individualized dose reduction techniques were utilized for this examination: 1. Automated exposure control 2. Adjustment of the mA and/or kV according to patient size 3. Use of iterative reconstruction technique FINDINGS: Pulmonary arteries: No evidence of pulmonary thromboembolic disease Lungs and Airways: No pulmonary mass or consolidation. Right upper lobe 5 mm nodule (series 4 image 37). No abnormality of the central airways. Pleura: The pleural spaces are normal. Heart and Mediastinum: The visualized thyroid is normal in size and attenuation. No axillary or supraclavicular lymphadenopathy. No mediastinal, hilar or retrocrural lymphadenopathy. Calcified mediastinal and left hilar lymph nodes consistent with remote granulomatous disease Normal cardiac size. No pericardial effusion. Coronary artery atherosclerotic disease. Atherosclerosis of the t horacic aorta. Abdomen: Limited images through the upper abdomen show no abnormality of the visualized organs. Bones and Soft Tissues: Degenerative changes of the spine. IMPRESSION: 1. No evidence of pulmonary thromboembolic disease. Dilated pulmonary trunk, which can be seen with pulmonary hypertension. 2. No pulmonary mass or consolidation. Abnormality seen in the right suprahilar region on the prior radiograph may have been artifactual. 3. Right upper lobe 5 mm nodule. Consider 12 month follow-up chest CT if patient has risk factors (history of smoking, history of malignancy, etc.). Electronically signed by: Yon Amado MD (03/05/2021 8:38 AM) [id number] DICTATED AND SIGNED BY: YON AMADO MD DATE: 03/05/21 0824 CC: MOLLY GALLEGO DO; SOLIS KONG MD; JESSICA DANIELLE [facility] ~MTH0 0 (MOLLY GALLEGO DO) Heart Score: C/O Chest Pain: Yes HEART Score for Chest Pain: HEART Score for Chest Pain Response (Comments) Value History Moderately Suspicious 1 ECG Nonspecific Repolarizatio 1 Age > 65 2 Risk Factors 1 or 2 Risk Factors 1 Troponin < Normal Limit 0 Total 5 Risk Factors: Risk Factors: DM, Current or recent (<one month) smoker, HTN, HLP, family history of CAD, obesity. Risk Scores: Score 0 - 3: 2.5% MACE over next 6 weeks - Discharge Home Score 4 - 6: 20.3% MACE over next 6 weeks - Admit for Clinical Observation Score 7 - 10: 72.7% MACE over next 6 weeks - Early Invasive Strategies (SOLIS KONG MD) Course & Med Decision Making: Course & Med Decision Making Pertinent Labs and Imaging studies reviewed. (See chart for details) Discussed presentation, testing and t.x plan with Dr. Taylor . Possible Admit. If able to rule out CT and PE, may be possible to go home. May be a candidate for anticoagulation pending ultrasound studies of legs and CT findings. Endorsed to Dr. Gallego at shift change. Impression: 1. Chest Pain 2. Elevated D-dimer = 3.60 3. DM 137 4. Hx. of CADz [] (SOLIS KONG MD) Course & Med Decision Making The patient's second troponin is negative. His CT angiogram of the chest is negative for pulmonary embolus. He has some other incidental findings. See official read for details. The patient would like to go home. I believe this is reasonable. He is stable for discharge at this time. (MOLLY GALLEGO DO) Dragon Disclaimer: Dragon Disclaimer: This electronic medical record was generated, in whole or in part, using a voice recognition dictation system. (SOLIS KONG MD) Departure Departure: Impression: Primary Impression: Chest pain Disposition: HOME / SELF CARE / HOMELESS Condition: STABLE Referrals: JESSICA DANIELLE (PCP) Patient Instructions: Chest Pain (Nonspecific), [id number] Dragon Disclaimer This chart was dictated in whole or in part using Voice Recognition software in a busy, high-work load, and often noisy Emergency Department environment. It may contain unintended and wholly unrecognized errors or omissions. (SOLIS KONG MD) Dragon Disclaimer This chart was dictated in whole or in part using Voice Recognition software in a busy, high-work load, and often noisy Emergency Department environment. It may contain unintended and wholly unrecognized errors or omissions. (SOLIS KONG MD) SOLIS KONG MD Mar 05, 2021 03:04 MOLLY GALLEGO DO Mar 05, 2021 08:25
[2021-03-05] MEDS: IV RINGERS SOLUTION,LACTATED 1,000 ML IV SCH ×4 (03:29→08:59)
[2021-03-05 03:30] VITALS: BP 143/71
[2021-03-05] MEDS ORDERED: ASPIRIN CHEWABLE 81 MG TABLET. PO ONE (03:30)
--- NOTE | 2021-03-05 03:33 | EKG ---
[address] [address] Test Date: 2021-03-05 Test Time: 03:21:50 Pat Name: HERBIE GILES Department: Room: Gender: M Mediator: : 1955 Requested By: SOLIS KONG Order Number: [id number] Reading MD: Measurements Intervals [place] Rate: 60 P: -59 ND: 140 QRS: -25 QRSD: 84 T: 25 QT: 416 QTc: 420 Interpretive Statements SINUS RHYTHM LEFTWARD AXIS LOW LIMB LEAD VOLTAGE QRS(T) CONTOUR ABNORMALITY CONSISTENT WITH ANTERIOR INFARCT PROBABLY OLD ABNORMAL ECG RI6.02 No previous ECG available for comparison
[2021-03-05] MEDS ORDERED: ACETAMINOPHEN 500 MG TABLET PO ONE (04:13)
[2021-03-05 04:19] LABS: BASO # 0.1 x10^3/uL (0.0-0.2); BASO % 1 % (0-3); EOS # 0.2 x10^3/uL (0.0-0.7); EOS % 3 % (0-3); HEMATOCRIT 43.1 % (39.0-53.0); HEMOGLOBIN 14.3 g/dL (13.0-17.5); LYMPH # 1.5 x10^3/uL (1.0-4.8); LYMPH % 23 % (24-48); MEAN CORPUSCULAR HEMOGLOBIN 30 pg (25-35); MEAN CORPUSCULAR HGB CONC 33 g/dL (31-37); MEAN CORPUSCULAR VOLUME 91 fL (79-100); MONO # 0.9 x10^3/uL (0.0-1.1); MONO % 14 % (0-9); NEUT % 59 % (31-73); PLATELET COUNT 183 x10^3/uL (140-400); RED BLOOD COUNT 4.74 x10^6/uL (4.30-5.70); RED CELL DISTRIBUTION WIDTH 13.1 % (11.5-14.5); WHITE BLOOD COUNT 6.8 x10^3/uL (4.0-11.0)
[2021-03-05 04:29] LABS: CALCIUM 8.3 mg/dL (8.5-10.1); CREATININE 0.8 mg/dL (0.7-1.3)
[2021-03-05 04:41] LABS: ALBUMIN 3.4 g/dL (3.4-5.0); DIRECT BILIRUBIN 0.1 mg/dL (0.0-0.2); MAGNESIUM 2.4 mg/dL (1.8-2.4); TOTAL BILIRUBIN 0.2 mg/dL (0.2-1.0); TOTAL PROTEIN 6.1 g/dL (6.4-8.2)
[2021-03-05 05:01] LABS: BILIRUBIN,URINE NEG (NEG); CLARITY,URINE CLEAR; COLOR,URINE YELLOW; GLUCOSE,URINE >=1000 mg/dL (NEG); UROBILINOGEN,URINE 0.2 mg/dL (0.2 mg/dL)
[2021-03-05 05:02] LABS: BACTERIA,URINE 0 /HPF (0-FEW); NITRITE,URINE NEG (NEG); RBC,URINE 0 /HPF (0-2); SQUAMOUS EPITHELIAL CELL,UR FEW /LPF
--- NOTE | 2021-03-05 05:19 | RAD ---
EXAM: CHEST ONE VIEW. HISTORY: Chest pain. COMPARISON: 12/16/2020. FINDINGS: A frontal view of the chest is obtained. A left-sided pacer/defibrillator has its leads in the right atrium and right ventricle. There is focal architectural distortion just lateral to the right superior hilum. Calcified mediastin al lymph nodes are likely secondary to old granulomatous disease. There is no pneumothorax or pleural effusion. The heart is not enlarged. IMPRESSION: 1. Architectural distortion lateral to the right superior hilum. CT of the chest could exclude a nodu le if this remains unclear. Electronically signed by: Angela Meadows MD (03/05/2021 5:17 AM) [id number]
[2021-03-05] MEDS ORDERED: CONTRAST GIVEN. MC PRN (06:15)
[2021-03-05] MEDS ORDERED: IOHEXOL 350 MG/ML 100 ML VIAL. IV ONE (06:30)
--- NOTE | 2021-03-05 08:40 | RAD ---
CTA CHEST INDICATION: dyspnea, cp, rt. hilar changes Comparison: Chest radiograph 03/05/2021. TECHNIQUE: Following the uneventful administration of intravenous contrast, 100 cc Omnipaque 350, axi al CT sections were obtained through the lungs and upper abdomen. Multiplanar reconstructions and MIP images were obtained. PQRS compliance statement: One or more of the following individualized dose reduction techniques were utilized for this examinat ion: 1. Automated exposure control 2. Adjustment of the mA and/or kV according to patient size 3. Use of iterative reconstruction technique FINDINGS: Pulmonary arteries: No evidence of pulmonary thromboembolic disease Lungs and Airways: No pulmonary mass or consolidation. Right upper lobe 5 mm nodule (series 4 image 3 7). No abnormality of the central airways. Pleura: The pleural spaces are normal. Heart and Mediastinum: The visualized thyroid is normal in size and attenuation. No axillary or supra clavicular lymphadenopathy. No mediastinal, hilar or retrocrural lymphadenopathy. Calcified mediastin al and left hilar lymph nodes consistent with remote granulomatous disease Normal cardiac size. No pe ricardial effusion. Coronary artery atherosclerotic disease. Atherosclerosis of the thoracic aorta. Abdomen: Limited images through the upper abdomen show no abnormality of the visualized organs. Bones and Soft Tissues: Degenerative changes of the spine. IMPRESSION: 1. No evidence of pulmonary thromboembolic disease. Dilated pulmonary trunk, which can be seen with p ulmonary hypertension. 2. No pulmonary mass or consolidation. Abnormality seen in the right suprahilar region on the prior r adiograph may have been artifactual. 3. Right upper lobe 5 mm nodule. Consider 12 month follow-up chest CT if patient has risk factors (hi story of smoking, history of malignancy, etc.). Electronically signed by: Ephraim Amado MD (03/05/2021 8:38 AM) [id number]
== END 2021-03-05 09:14 | disposition home or self-care (01) ==
LOC: ER 02:58
DX: R07.89 Other chest pain (principal); R79.1 Abnormal coagulation profile; E11.9 Type 2 diabetes mellitus without complications; I48.91 Unspecified atrial fibrillation; I11.0 Hypertensive heart disease with heart failure; I50.9 Heart failure, unspecified; I25.2 Old myocardial infarction; M19.90 Unspecified osteoarthritis, unspecified site; E78.00 Pure hypercholesterolemia, unspecified; Z20.822 Contact with and (suspected) exposure to COVID-19; Z87.891 Personal history of nicotine dependence
CPT/HCPCS: 36415; 71045; 71275; 80048; 80076; 81001; 82550; 83690; 83735; 83880; 84443; 84484; 85025; 85379; 85610; 85730; 87426; 93005; 96360; 96361; 99284; C9803; J7120; Q9967; U0003

== ENCOUNTER 2021-04-18 12:56 | Emergency (ER) | payer MEDICARE, OTHER ==
[~2021-04-18] VITALS: Ht 172.7 cm; Wt 86.7 kg
[2021-04-18] MEDS ORDERED: IV NORMAL SALINE 1,000ML 1,000 ML IV ONE (13:30)
--- NOTE | 2021-04-18 13:38 | PHYS DOC ---
Past History Past Medical History: A-Fib, Angina, CHF, Hypertension, NE, Other Additional Past Medical Histor: HEART FAILURE Past Surgical History: Pacemaker, Other Additional Past Surgical Histo: CARDIAC STENTS 1999; CARIDAC ABLATION ; CARDIAC CATHS X 2 Smoking: Quit Greater Than 1 Year Alcohol Use: None Drug Use: None Social History Narrative: HX OF COCAINE, CRANK, MARIJUANA USE IN General Adult EDM: Chief Complaint: MULTIPLE COMPLAINTS HPI: HPI: 65-year-old male presents with fatigue, shortness of breath. The patient has been feeling "under the weather" for about a week. He states that he has had decreased appetite, decreased exercise tolerance low-grade fever. He is single with a viral illness. He was vaccinated against COVID-19. He was tested for COVID-19 2 days ago and the result came back today and it was negative. He presents emergency room today because he thought he was feeling better this morning but then around 11:30 AM he just became very tired and had significant decrease in exercise tolerance. Patient has a history of AICD and an ablation this summer. Review of Systems: Review of Systems: Constitutional: Fever, fatigue, body aches Eyes: Denies change in visual acuity HENT: Denies nasal congestion or sore throat Respiratory: shortness of breath Cardiovascular: Denies chest pain or edema GI: Denies abdominal pain, nausea, vomiting, bloody stools or diarrhea : Denies dysuria Musculoskeletal: Denies back pain or joint pain Integument: Denies rash Neurologic: Denies headache, focal weakness or sensory changes Endocrine: Denies polyuria or polydipsia Lymphatic: Denies swollen glands Psychiatric: Denies depression or anxiety Current Medications: Current Meds: Current Medications Medications (Trade) Dose Ordered Sig/Frank Start Time Stop Time Status Last Admin Dose Admin Sodium Chloride 1,000 ml @ 1,000 mls/hr 1X ONCE 04/18/21 13:30 04/18/21 14:29 Allergies: Allergies: Allergies Coded Allergies Type Severity Reaction Last Updated Verified [id number] Reductase Inhibitor Allergy Unknown 04/18/21 Yes Physical Exam: PE: Constitutional: Well developed, well nourished, no acute distress, non-toxic appearance. [] HENT: Normocephalic, atraumatic, bilateral external ears normal, oropharynx moist, no oral exudates, nose normal. [] Eyes: PERRLA, EOMI, conjunctiva normal, no discharge. [] Neck: Normal range of motion, no tenderness, supple, no stridor. [] Cardiovascular: Heart rate 62, regular rhythm, no murmur [] Lungs & Thorax: Bilateral breath sounds clear to auscultation [] Abdomen: Bowel sounds normal, soft, no tenderness, no masses, no pulsatile masses. [] Skin: Warm, dry, no erythema, no rash. [] Back: No tenderness, no CVA tenderness. [] Extremities: No tenderness, no cyanosis, no clubbing, ROM intact, no edema. [] Neurologic: Alert and oriented X 3, normal motor function, normal sensory function, no focal deficits noted. [] Psychologic: Affect normal, judgement normal, mood normal. [] Current Patient Data: Vital Signs: Vital Signs Date Time Temp Pulse Resp B/P (MAP) Pulse Ox O2 Delivery O2 Flow Rate FiO2 04/18/21 13:10 98.5 62 16 119/48 (71) 97 Room Air EKG: EKG: Regular rhythm, rate 61, pacer spikes on monitor not EKG printout, normal axis, no ST elevation or depression. [] Radiology/Procedures: Radiology/Procedures: [] Impressions: EXAMINATION: XR CHEST 1V CLINICAL HISTORY: Shortness of breath. EXAM DATE/TIME: 04/18/2021 1:27 PM COMPARISON: 03/05/2021 FINDINGS: Lines, Tubes, and Devices: Left-sided dual-chamber cardiac pacemaker/ICD. Cardiomediastinal Silhouette: Within normal limits. Lungs and Pleura: No evidence of focal airspace consolidation or pleural effusion. Old calcified granulomatous disease. Pulmonary vasculature unremarkable. Bones and Soft Tissues: Degenerative changes in the thoracic spine. IMPRESSION: No evidence of acute cardiopulmonary abnormality or significant interval change. Electronically signed by: Russel Jurado DO (04/18/2021 1:53 PM) [facility] DICTATED AND SIGNED BY: RUSSEL JURADO DO DATE: 04/18/21 135 CC: MOLLY GALLEGO DO; PCP,UNKNOWN ~MTH0 0 Heart Score: C/O Chest Pain: N/A Risk Factors: Risk Factors: DM, Current or recent (<one month) smoker, HTN, HLP, family history of CAD, obesity. Risk Scores: Score 0 - 3: 2.5% MACE over next 6 weeks - Discharge Home Score 4 - 6: 20.3% MACE over next 6 weeks - Admit for Clinical Observation Score 7 - 10: 72.7% MACE over next 6 weeks - Early Invasive Strategies Course & Med Decision Making: Course & Med Decision Making Pertinent Labs and Imaging studies reviewed. (See chart for details) The patient's chest x-ray is negative for acute findings. His EKG is negative for acute findings. His labs are unremarkable. This is likely still viral illness whether that be influenza, Covid, or something else. He does not meet admission criteria at this time. I have advised that he continue to take it easy at home and supportive care. He is stable for discharge at this time. [] Jennifferon Disclaimer: Madelyn Disclaimer: This electronic medical record was generated, in whole or in part, using a voice recognition dictation system. Departure Departure: Impression: Primary Impression: Viral syndrome Disposition: HOME / SELF CARE / HOMELESS Condition: STABLE Referrals: PCP,UNKNOWN (PCP) Patient Instructions: Viral Syndrome MOLLY GALLEGO DO Apr 18, 2021 13:38
[2021-04-18 13:44] LABS: BASO # 0.1 x10^3/uL (0.0-0.2); BASO % 1 % (0-3); EOS # 0.1 x10^3/uL (0.0-0.7); EOS % 1 % (0-3); HEMATOCRIT 45.6 % (39.0-53.0); HEMOGLOBIN 15.8 g/dL (13.0-17.5); LYMPH # 1.1 x10^3/uL (1.0-4.8); LYMPH % 13 % (24-48); MEAN CORPUSCULAR HEMOGLOBIN 30 pg (25-35); MEAN CORPUSCULAR HGB CONC 35 g/dL (31-37); MEAN CORPUSCULAR VOLUME 87 fL (79-100); MONO # 1.8 x10^3/uL (0.0-1.1); MONO % 22 % (0-9); NEUT # 5.2 x10^3uL (1.8-7.7); NEUT % 64 % (31-73); PLATELET COUNT 163 x10^3/uL (140-400); RED BLOOD COUNT 5.24 x10^6/uL (4.30-5.70); RED CELL DISTRIBUTION WIDTH 13.2 % (11.5-14.5); WHITE BLOOD COUNT 8.2 x10^3/uL (4.0-11.0)
[2021-04-18 13:46] LABS: BILIRUBIN,URINE NEG (NEG); CLARITY,URINE HAZY; COLOR,URINE YELLOW; GLUCOSE,URINE >=1000 mg/dL (NEG)
[2021-04-18 13:47] LABS: NITRITE,URINE NEG (NEG); UROBILINOGEN,URINE 0.2 mg/dL (0.2 mg/dL)
[2021-04-18 13:53] LABS: BACTERIA,URINE FEW /HPF (0-FEW); SQUAMOUS EPITHELIAL CELL,UR FEW /LPF; WBC,URINE 20-40 /HPF (0-4)
[2021-04-18 13:55] LABS: CALCIUM 8.9 mg/dL (8.5-10.1); CREATININE 0.9 mg/dL (0.7-1.3); GFR 84.7; POTASSIUM 3.8 mmol/L (3.5-5.1)
--- NOTE | 2021-04-18 13:55 | RAD ---
EXAMINATION: XR CHEST 1V CLINICAL HISTORY: Shortness of breath. EXAM DATE/TIME: 04/18/2021 1:27 PM COMPARISON: 03/05/2021 FINDINGS: Lines, Tubes, and Devices: Left-sided dual-chamber cardiac pacemaker/ICD. Cardiomediastinal Silhouette: Within normal limits. Lungs and Pleura: No evidence of focal airspace consolidation or pleural effusion. Old calcified gran ulomatous disease. Pulmonary vasculature unremarkable. Bones and Soft Tissues: Degenerative changes in the thoracic spine. IMPRESSION: No evidence of acute cardiopulmonary abnormality or significant interval change. Electronically signed by: Russel Cordero DO (04/18/2021 1:53 PM) [facility]
[2021-04-18 14:01] LABS: ALBUMIN 3.2 g/dL (3.4-5.0); ALBUMIN/GLOBULIN RATIO 0.9 (1.0-1.7); TOTAL BILIRUBIN 0.5 mg/dL (0.2-1.0); TOTAL PROTEIN 6.7 g/dL (6.4-8.2)
--- NOTE | 2021-04-18 15:01 | EKG ---
[address] [address] Test Date: 2021-04-18 Test Time: 13:38:06 Pat Name: HERBIE GILES Department: Room: Gender: M Choral Director: EDIN : 1955 Requested By: MOLLY GALLEGO Order Number: [id number] Reading MD: Chacorta Pedersen Measurements Intervals [place] Rate: 61 P: -62 CO: 128 QRS: 67 QRSD: 80 T: 38 QT: 516 QTc: 527 Interpretive Statements A PACED POSSIBLE PRIOR ANTEROSEPTAL INFARCT Electronically Signed On 04-19-2021 14:00:58 [employer] by Chacorta Pedersen
[2021-04-18 16:05] VITALS: BP 119/70
== END 2021-04-18 16:10 | disposition home or self-care (01) ==
LOC: ER 12:56
DX: B34.9 Viral infection, unspecified (principal); I48.91 Unspecified atrial fibrillation; I11.0 Hypertensive heart disease with heart failure; I50.9 Heart failure, unspecified; I25.2 Old myocardial infarction; Z95.0 Presence of cardiac pacemaker; Z87.891 Personal history of nicotine dependence; Z88.8 Allergy status to other drugs, medicaments and biological substances
CPT/HCPCS: 36415; 71045; 80053; 81001; 84484; 85025; 87077; 87086; 87186; 93005; 96360; 96361; 99284; J7030; 99285